=== PATIENT | male | born 1950 | race African-American/Black ===

== ENCOUNTER 2020-03-22 11:09 | Inpatient (IN) | payer OTHER ==
[2020-03-22] VITALS (11 sets, daily range): BP systolic 67–122; BP diastolic 37–59
[~2020-03-22] VITALS: Ht 170.2 cm; Wt 58.7 kg
--- NOTE | ~2020-03-22 | HC ---
[facility] [place] [address] CONSULTATION Name: DINO DE LA TORRE Room #: 212-P ADM IN M.R.#: [id number] Admission: 03/22/20 Attend Phys: Wu Ingram MD Discharge: Date of : 48 Report #: [id number] THIS REPORT FOR: cc: Eduard Smith MD, Ramilo MD Al-Absi,Salazar Haque MD ~ REASON FOR CONSULTATION: Acute kidney injury. REASON FOR PRESENTATION: Brought from his nursing facility because of melena, vomiting and possible hematemesis. HISTORY OF PRESENT ILLNESS: I am not able to obtain any meaningful history from the patient. He has acute mental status issues. He is a poor historian. He is known to have CVA with hemiparesis. We do not have any baseline on his chronic kidney disease issues. He has a history of dementia, diabetes mellitus, and hyperlipidemia. He was brought because of vomiting and possible hematemesis and was found to be on a profound acute kidney injury with a creatinine value of 10.7 and severe metabolic acidosis with the gap of around 40. The patient is not currently able to provide me with any details; however, I talked with his brother about his issues. He was admitted to the ICU for further management of his ongoing health issues. MEDICATIONS: I am unable to obtain any of his fdc medication; however, it is stated that the patient is diabetic and is taking metformin. PAST MEDICAL HISTORY: Listed in the medical chart: 1. CVA with hemiplegia and hemiparesis. 2. Dementia. 3. Diabetes mellitus. 4. Hyperlipidemia. 5. Hypertension. 6. Dysarthria. 7. Dysphagia. ALLERGIES: METOPROLOL AND NICARDIPINE. REVIEW OF SYSTEMS: I am not able to obtain given the patient's current mental status. FAMILY HISTORY: I am not able to obtain given the patient's current mental status. SOCIAL HISTORY: Unable to obtain, but he came from a nursing facility. PHYSICAL EXAMINATION: [facility] [address] [place] [address] CONSULTATION Name: DINO DE LA TORRE Room #: 212-P [facility] IN [facility].#: [id number] Admission: 03/22/20 Attend Phys: Wu Ingram MD Discharge: Date of : 48 Report #: [id number] VITAL SIGNS: Temperature 37.4, blood pressure is 120/85, pulse rate is 102. HEAD AND NECK: Extremely dry mucous membrane. CHEST: No crackles. CARDIOVASCULAR: No rub detected. ABDOMEN: Soft. EXTREMITIES: Lower extremities, no edema. LABORATORY VALUES: From admission revealed a white blood cell count of 13.4, pH of 7.185. Sodium of 144, potassium of 3.3, BUN of 71, creatinine of 8.0. CT revealed a potential thickening of the left lateral and anterior wall of the rectum. Renal ultrasound revealed no evidence of hydronephrosis. ASSESSMENT 1. Acute kidney injury. 2. Severe metabolic acidosis. 3. Diabetes mellitus. 4. Hypertension. 5. Dementia. PLAN: I had a lengthy discussion with the patient's brother yesterday. No dialysis is warranted by the family members. His metabolic acidosis is likely related to multifactorial issues including metformin. This has been improving. Continue with IV fluid for now. His creatinine is dropping down. Replace potassium. Continue to watch electrolytes, urine output. Continue to avoid nephrotoxins. Continue with the current IV fluid; however, we will adjust in the next few days to avoid electrolyte derangement. By: [id number] [id number] Salazar Caraballo MD /nt
--- NOTE | ~2020-03-22 | EMS ---
[facility] [address] [place] [address] EMS Patient Care Report Name: DINO DE LA TORRE Room #: REG BERTA Lawson#: [id number] Admission: 03/22/20 Attend Phys: Discharge: Date of : 48 Report #: [id number] THIS REPORT FOR: //name// Report Transmitted: 03/22/2020 12:46 EMS Care Summary [place], [place]/[facility] Incident [id number] @ 03/22/2020 10:45 Incident Location [address] Patient DINO JACINTO Male, 69 Years 1950 Patient Address [address] [place] [address] Patient History Stroke/CVA, Patient Medications Unknown, Chief Complaint VOMITING Disposition Transported No Lights/[place] Dispatch Reason Hemorrhage/Laceration Transported To [facility] Narrative RESPONDED TO HEMORRHAGE AT CUSTODIAL. UPON ARRIVAL PT FOUND SLEEPING IN BED. [facility] STAFF REPORT THEY ARE NEW TO FACILITY AND DO NOT KNOW HOW LONG THIS ISSUE HAS BEEN HAPPENING. PT IS ALERT AND ORIENTED, REPORTS ISSUE FOR 3 DAYS. PT HAS NO OTHER COMPLAINTS EXCEPT THE VOMITING. NH STAFF REPORTS THE VOMIT APPEARS TO HAVE TRACE AMOUNTS OF BLOOD AND APPEARS TO BE FECES. NH STAFF CANNOT GIVE INFO [facility] [address] [place] [address] EMS Patient Care Report Name: DINO DE LA TORRE Room #: TANYA Lawson#: [id number] Admission: 03/22/20 Attend Phys: Discharge: Date of : 48 Report #: [id number] ON IF PT HAS NORMAL STOOLS. PT IS TEAM LIFTED TO COT AND VITALS OBTAINED. EN ROUTE PT VOMITS X1. VOMIT APPEARS TO BE DARK BROWN, NO BLOOD NOTED. PT TRANSPORTED TO [facility] WITH NO CHANGE IN CONDITION. PT TEAM LIFTED TO BED AND HANDRAILS UP. REPORT GIVEN TO NURSE. Initial Vitals @11:02P: 109,R: 20,BP: 99/52,SpO2: 96, @10:57P: 59,R: 18,BP: 102/62,Pain: 0/10,GCS: 15,SpO2: 94,Revised Trauma: 12, Assessments @10:53MENTAL:Person Oriented,Time Oriented,Event Oriented,Place Oriented,SKIN:HEENT:Head/Face: No Abnormalities,Eyes: No Abnormalities,Neck/Airway: No Abnormalities,LUNG SOUNDS:General: Vomiting,ABDOMEN:General: Vomiting,PELVIS//GI:Incontinence,EXTREMITIES:Left Arm: Weakness,Left Leg: Weakness,Right Arm: Weakness,Right Leg: Weakness,PULSE:NEURO:No Abnormalities,@11:02MENTAL:No Abnormalities,SKIN:No Abnormalities,HEENT:Head/Face: No Abnormalities,Eyes: No Abnormalities,Neck/Airway: No Abnormalities,LUNG SOUNDS:General: Vomiting,Left Upper: No Abnormalities,Right Upper: No Abnormalities,Left Lower: No Abnormalities,Right Lower: No Abnormalities,ABDOMEN:General: Vomiting,Left Upper: No Abnormalities,Right Upper: No Abnormalities,Left Lower: No Abnormalities,Right Lower: No Abnormalities,PELVIS//GI:Incontinence,EXTREMITIES:Left Arm: Weakness,Right Arm: Weakness,Left Leg: Weakness,Right Leg: Weakness,PULSE:NEURO:No Abnormalities, Impression Vomiting Procedures @10:53ALS AssessmentResponse: UnchangedSucceeded Timeline 10:43,Call Received 10:43,Dispatch Notified 10:45,Dispatched 10:46,En Route 10:48,On Scene 10:53,At Patient 10:53,ALS Assessment,Response: UnchangedSucceeded, 10:57,BP: 102/62 M,PULSE: 59,RR: 18 R,SPO2: 94 Ox,ETCO2: ,BG: ,PAIN: 0,GCS: 15, 11:02,BP: 99/52 M,PULSE: 109,RR: 20 R,SPO2: 96 Ox,ETCO2: ,BG: ,PAIN: ,GCS: , 11:02,Depart Scene 11:04,At Destination 11:15,Call Closed [facility] [address] [place] [address] EMS Patient Care Report Name: DINO DE LA TORRE [id number] Admission: 03/22/20 Attend Phys: Discharge: Date of : 48 Report #: [id number] Disclaimer v1.1 Copyright 2020 [employer] This EMS Care Summary contains data elements from the applicable legal record (which may be displayed differently). It is designed to provide pertinent information for the following purposes: continuity of care, clinical quality, and state data reporting. The complete legal record is available to ED staff and administrators of the receiving hospital in [facility]'s Patient Tracker. All data is provided "as is."
--- NOTE | 2020-03-22 11:52 | NUR ---
LAB CALLED TO DRAW BLOOD UNABLE TO OBTAIN FROM IV SITE. LAB STATES THEY ARE UNABLE TO COME AT THIS TIME BUT WILL COME TO DRAW BLOOD.
--- NOTE | 2020-03-22 12:25 | EKG ---
[facility] [place] [address] ELECTROCARDIOGRAM REPORT Name: DINO JACINTO Room #: [facility]..#: [id number] Admission: Attend Phys: Discharge: Date of : 48 Report #: [id number] THIS REPORT FOR: cc: Yogesh Moreno MD [facility] ~ THIS REPORT FOR: //name// [facility] ED Test Date: 2020-03-22 Test Time: 11:47:01 Pat Name: DINO JACINTO Department: Room: Gender: Duct Cleaner: [facility] : 1950 Requested By: Chelsea Garcias Order Number: [id number] MD: Yogesh Moreno Measurements Intervals Trimble Rate: 103 P: 84 WI: 153 QRS: 80 QRSD: 97 T: QT: 346 QTc: 453 Interpretive Statements Sinus tachycardia Probable left atrial enlargement Borderline repolarization abnormality No previous ECG available for comparison Electronically Signed On 03-22-2020 12:24:51 TUMBLER DRIER OPERATOR by Yogesh Moreno [email or web address] <ELECTRONICALLY SIGNED> By: Yogesh Moreno MD, FAC 03/22/20 1224 1147 1147 Yogesh Moreno MD, FACC /EPI
--- NOTE | 2020-03-22 12:37 | NUR ---
LAB HAS NOT COME TO DRAW BLOOD. ATTEMPTED PERIPHERAL DRAW WITH NO SUCCESS. LAB CALLED AGAIN FOR REQUEST.
[2020-03-22 13:49] LABS: HEMATOCRIT 42.2 % (42.0-52.0); HEMOGLOBIN 12.5 gm/dL (14.0-18.0); MCH 23.2 pg (26.0-34.0); MCHC 29.5 g/dL (28.0-37.0); MCV 78.5 fL (80.0-100.0); PLATELET COUNT 254 thou/uL (150-400); RBC 5.38 mil/uL (4.50-6.00); RDW 15.2 % (10.5-14.5); WBC 13.4 thou/uL (4.0-11.0)
[2020-03-22 14:25] LABS: ABSOLUTE NEUTROPHILS 11.9 thou/uL (1.4-8.2)
[2020-03-22 14:29] LABS: ANION GAP 40 mmol/L (7-16); BUN 85 mg/dL (7-18); CALCIUM 9.2 mg/dL (8.5-10.1); CHLORIDE 99 mmol/L (98-107); CREATININE 10.7 mg/dL (0.7-1.3); GLUCOSE 113 mg/dL (74-106); LIPASE 222 U/L (73-393); MAGNESIUM 1.9 mg/dL (1.8-2.4); POTASSIUM 5.8 mmol/L (3.5-5.1); SGOT 8 U/L (15-37); SGPT 15 U/L (30-65); SODIUM 146 mmol/L (136-145); TOTAL BILIRUBIN 0.3 mg/dL (0.2-1.0); TOTAL PROTEIN 7.7 g/dL (6.4-8.2); TROPONIN-I <0.06 ng/mL (<0.06)
[2020-03-22 14:33] LABS: CO2 7 mmol/L (21-32)
[2020-03-22 15:36] LABS: URINE BILIRUBIN NEGATIVE (Negative); URINE BLOOD 2+ (Negative); URINE CLARITY CLEAR; URINE COLOR YELLOW; URINE GLUCOSE-RANDOM* NEGATIVE (Negative); URINE KETONES 1+ (Negative); URINE LEUKOCYTES-REFLEX TRACE (Negative); URINE NITRITE-REFLEX NEGATIVE (Negative); URINE PROTEIN (DIPSTICK) 3+ (Negative); URINE SPECIFIC GRAVITY >= 1.030 (1.005-1.035); URINE UROBILINOGEN 0.2 E.U./dl (0.2-1.0)
[2020-03-22 15:52] LABS: CASTS None Seen /LPF (None Seen); CRYSTALS None Seen /LPF (None Seen); SQUAMOUS 4-10 Moderate /LPF (0-3); URINE WBC-REFLEX 0-5 Rare /HPF (0-5)
[2020-03-22 15:53] LABS: BACTERIA-REFLEX 1-9 Few /HPF (None Seen)
--- NOTE | 2020-03-22 16:09 | NUR ---
VAT CONSULTED FOR A CL IN THE ER FOR THE ICU. TIP AT THE [facility], PLEASE SEE NI FOR DETAILS
[2020-03-22 19:51] LABS: CREATININE 10.8 mg/dL (0.7-1.3); POTASSIUM 5.9 mmol/L (3.5-5.1)
[2020-03-22 21:32] LABS: HEMATOCRIT 32.8 % (42.0-52.0)
[2020-03-22 21:34] LABS: HEMOGLOBIN 9.7 gm/dL (14.0-18.0)
[2020-03-23] VITALS (90 sets, daily range): BP systolic 73–170; BP diastolic 26–104
[2020-03-23 01:04] LABS: BE(vivo) -19.8 mmol/L (-2 to +3); HCO3 6.4 mmol/L (22.0-26.0); PO2 109.5 mmHg (80.0-100.0)
[2020-03-23 01:05] LABS: PCO2 17.4 mmHg (35.0-45.0); pH 7.185 (7.360-7.450)
[2020-03-23 04:24] LABS: ALBUMIN 2.9 g/dL (3.4-5.0); CALCIUM 7.4 mg/dL (8.5-10.1); CREATININE 10.4 mg/dL (0.7-1.3); MAGNESIUM 1.6 mg/dL (1.8-2.4); PHOSPHORUS 7.4 mg/dL (2.5-4.9)
[2020-03-23 04:30] LABS: POTASSIUM 4.5 mmol/L (3.5-5.1)
[2020-03-23 05:14] LABS: ABSOLUTE NEUTROPHILS 9.1 thou/uL (1.4-8.2); HEMATOCRIT 34.4 % (42.0-52.0); HEMOGLOBIN 10.1 gm/dL (14.0-18.0); LYMPHOCYTES 5.1 % (24.0-44.0); MCHC 29.2 g/dL (28.0-37.0); MCV 78.7 fL (80.0-100.0); MONOCYTES 10.8 % (1.0-8.0); PLATELET COUNT 216 thou/uL (150-400); POLYS 84.1 % (36.0-66.0); RBC 4.37 mil/uL (4.50-6.00); RDW 15.5 % (10.5-14.5); WBC 10.9 thou/uL (4.0-11.0)
--- NOTE | 2020-03-23 05:54 | NUR ---
PATIENT CAME UP TO THE FLOOR AT AROUND 2230. THE ER NURSE AND I CLEANED THE PATIENT UP AND GOT HIM INTO BED. PATIENT IS CONFUSED BUT CAN ANSWER SIMPLE QUESTIONS. PATIENT WAS HYPOTENSIVE AND I CONTACTED FRANDY HIGGINBOTHAM. I GAVE THE PATIENT A LITER OF NS. PATIENT'S BP CAME UP, BUT BECAME TACHYPNIC. CONTACTED FRANDY HIGGINBOTHAM AGAIN AND RECIEVED ORDERS FOR AN AMP OF BICARB AND AN ABG. BICARB GIVEN AND PATIENT'S RESPIRATIONS RETURNED TO NORMAL. ABG SHOWED CRIT LOW BICARB AND PH. PATIENT'S LACTATE CONTINUES TO CLIMB. ANOTHER LACTATE WAS DRAWN AT 0320. LAB HAS BEEN CONTACTED 3 DIFFERENT TIMES ASKING ABOUT THE PATIENT'S LACTATE LEVELS AT THIS TIME.
--- NOTE | 2020-03-23 09:47 | NUR ---
chart review. unable to visit with itz. noted in chart he from [facility]. cm called number listed for brother leny is wrong number. cm called freda and unable to speak with nurse.
[2020-03-23 10:43] LABS: URINE BLOOD 3+ (Negative); URINE COLOR YELLOW; URINE GLUCOSE-RANDOM* NEGATIVE (Negative); URINE KETONES 1+ (Negative); URINE LEUKOCYTES 2+ (Negative); URINE NITRITE NEGATIVE (Negative); URINE PROTEIN (DIPSTICK) 2+ (Negative); URINE SPECIFIC GRAVITY 1.025 (1.005-1.035); URINE UROBILINOGEN 0.2 E.U./dl (0.2-1.0)
[2020-03-23 10:46] LABS: ICTOTEST (BILI CONFIRMATORY) Negative (Negative); URINE BILIRUBIN NEGATIVE (Negative); URINE CLARITY CLOUDY
[2020-03-23 11:01] LABS: URINE CREATININE-RANDOM* 78.5 mg/dL; URINE PROTEIN-RANDOM* 195.2 mg/dL (<11.9)
[2020-03-23 11:07] LABS: SQUAMOUS 0-3 Few /LPF (0-3)
[2020-03-23 11:08] LABS: BACTERIA 1-9 Few /HPF (None Seen); CASTS None Seen /LPF (None Seen); CRYSTALS None Seen /LPF (None Seen); URINE WBC 0-5 Rare /HPF (0-5)
--- NOTE | 2020-03-23 18:31 | NUR ---
0815 PT RESTLESS PULLING AT SEO OBTAINED ORDERS FOR RESTRAINTS PER RENO. PT CODE STATUS CHANGED THIS AM. 1000 SPOKE W/DR BOJORQUEZ REGARDING PT PLAN OF CARE. LACTIC ACID DRAWS NO LONGER NEEDED Q3 PER KARU. 1030 PT MADE NPO FOLLOWING SWALLOW EVAL. TITRATED OFF LEVO AT 1330. AFEBRILE. NO BM. UOP 650. PROGRESSING IN PLAN OF CARE
[2020-03-24 00:30] VITALS: BP 120/85
[2020-03-24 06:00] LABS: POTASSIUM 3.3 mmol/L (3.5-5.1)
[2020-03-24 06:02] LABS: HEMATOCRIT 31.1 % (42.0-52.0); HEMOGLOBIN 9.7 gm/dL (14.0-18.0); MCH 23.2 pg (26.0-34.0); MCHC 31.3 g/dL (28.0-37.0); MCV 74.3 fL (80.0-100.0); RBC 4.19 mil/uL (4.50-6.00); RDW 14.2 % (10.5-14.5); WBC 6.1 thou/uL (4.0-11.0)
--- NOTE | 2020-03-24 06:10 | NUR ---
assumed pt care at around 2200, pt is a transfer from icu, pt is awake, alert and oriented to self and place, sr on the monitor, asessments as charted, vss, denied having concerns, no acute distress noted, will pass on report
[2020-03-24 08:31] VITALS: BP 124/61
[2020-03-24 11:24] VITALS: BP 148/59
--- NOTE | 2020-03-24 13:00 | 2DMMODE ---
[facility] [address] [place] [address] 2 D/M-MODE ECHOCARDIOGRAM Name: DINO DE LA TORRE Room #: 212-P ADM IN M.R.#: [id number] Admission: 03/22/20 Attend Phys: Wu Ingram MD Discharge: Date of : 48 Report #: [id number] THIS REPORT FOR: cc: Eduard Smith MD, Ramilo MD Santiago, Patrick MD [facility] ~ APPROVED REPORT Study performed: 03/24/2020 11:47:26 EXAM: Comprehensive 2D, Doppler, and color-flow Echocardiogram Patient Location: Bedside Room #: 212 Status: routine BSA: 1.68 HR: 95 bpm BP: 124/61 mmHg Rhythm: NSR Other Information Study Quality: Technically Difficult Technically limited study due to inability to position patient, uncooperative patient. Indications CVA/TIA Diabetes Echo Enhancing Agent Indication: Rule out Shunt Agent(s) / Amount(s) Used: Agitated Saline 7 cc 2D Dimensions IVC: 16.00 mm Aortic Valve AoV Peak Noe.: 1.49 m/s AO Peak Gr.: 8.85 mmHg LVOT Max P.69 mmHg LVOT Max V: 1.29 m/s Mitral Valve E/A Ratio: 0.9 MV Decel. Time: 203.32 ms MV E Max Noe.: 0.64 m/s [facility] [address] [place] [address] 2 D/M-MODE ECHOCARDIOGRAM Name: DINO DE LA TORRE Room #: 212-P ADM IN M.R.#: [id number] Admission: 03/22/20 Attend Phys: Wu Ingram MD Discharge: Date of : 48 Report #: [id number] MV A Noe.: 0.75 m/s MV PHT: 58.96 ms IVRT: 106.11 ms Pulmonary Valve PV Peak Noe.: 1.01 m/s PV Peak Gr.: 4.10 mmHg Pulmonary Vein P Vein S: 0.30 m/s P Vein A: 0.28 m/s P Vein D: 0.20 m/s P Vein A Dur.: 92.3 msec P Vein S/D Ratio: 1.50 Tricuspid Valve TR Peak Noe.: 3.34 m/s TR Peak Gr.: 44.53 mmHg PA Pressure: 50.00 mmHg Left Ventricle The left ventricle is normal size. There is normal LV segmental wall motion. There is normal left ventricular wall thickness. Left ventricular systolic function is normal. The left ventricular ejection fraction is within the normal range. LVEF is 60-65%. Grade I - abnormal relaxation pattern. Right Ventricle The right ventricle is normal size. The right ventricular systolic function is normal. Atria The left atrium size is normal. Interatrial septum is intact without evidence of ASD or PFO. The right atrium size is normal. Aortic Valve The aortic valve is normal in structure. No aortic regurgitation is present. There is no aortic valvular stenosis. Mitral Valve The mitral valve is normal in structure. There is no mitral valve regurgitation noted. No evidence of mitral valve stenosis. Tricuspid Valve The tricuspid valve is normal in structure. There is mild tricuspid regurgitation. Estimated PAP 50 mmHg. There is moderate pulmonary hypertension. Pulmonic Valve [facility] [address] [place] [address] 2 D/M-MODE ECHOCARDIOGRAM Name: DINO DE LA TORRE Room #: 212-P [facility] IN ..#: [id number] Admission: 03/22/20 Attend Phys: Wu Ingram MD Discharge: Date of : 48 Report #: [id number] The pulmonary valve is normal in structure. There is no pulmonic valvular regurgitation. Great Vessels The aortic root is normal in size. IVC is normal in size and collapses >50% with inspiration. Pericardium There is no pericardial effusion. <Conclusion> Normal left ventricle size and wall thickness Ejection fraction 60% Normal right ventricular size and function Normal aortic/mitral valve structure and function Mild tricuspid valve insufficiency Pulmonary artery systolic pressure estimated at 50 mmHg No pericardial effusion <ELECTRONICALLY SIGNED> By: Yogesh Moreno MD, [facility] 03/24/20 1300 1300 [facility] Yogesh Moreno MD, FACC /INF
[2020-03-24 15:06] VITALS: BP 124/64
--- NOTE | 2020-03-24 16:52 | NUR ---
FAXED CLINICAL UPDATE TO KEVIN/[facility]OR[facility] RECEIVED CONFIRMATION AND WILL F/U WITH CHUCK IN ADM ON SUNDAY.
--- NOTE | 2020-03-24 16:54 | NUR ---
Patient admits from [facility] where he resides in [place]. Sp with sibling Lei Lantigua. Discussed can visit with one designated visitor and reviewed hours. Mr Lantigua unsure which sigling will be designated visitor. Sp with admissions at [facility]. DC convention planner to update facility. Plan return to [facility] once stable.
[2020-03-24 19:24] VITALS: BP 136/77
[2020-03-25 03:37] VITALS: BP 147/58
--- NOTE | 2020-03-25 03:45 | NUR ---
PATIENT ON BILATERAL MITTENS.REPOSITIONED Q2 HOURS AND NEEDED.MONITOR SHOWS SR.NPO.DENIES NEEDS AT THIS TIME.POC CONTINUED.
[2020-03-25 06:11] LABS: ALBUMIN 2.6 g/dL (3.4-5.0); CALCIUM 8.3 mg/dL (8.5-10.1); PHOSPHORUS 2.3 mg/dL (2.5-4.9)
[2020-03-25 06:31] LABS: POTASSIUM 2.8 mmol/L (3.5-5.1)
[2020-03-25 07:25] VITALS: BP 98/58
[2020-03-25 11:05] VITALS: BP 111/58
[2020-03-25 15:30] VITALS: BP 118/53
--- NOTE | 2020-03-25 17:25 | NUR ---
08:00 PT IS RESPONDING MORE APPROPRIATLEY THIS AM. WILL TRY A RESTRAINT RELEASE AND SEE HOW HE DOES WITH SUCH BEFORE OBTIANING ANOTHER NEW ORDER FOR SUCH. TURNED TO RIGHT SIDE COCCYX IS SLIGHTLY RED THEREFORE RELIEVED MUCH PRESSURE FROM AREA POSSIBLE. PARTIAL BED BATH PERFORMED, HAIR WASHED AND LIPS SCRUBBED WELL FOR DRY SKIN REMOVAL. OINTMENT TO LIPS FOR SUCH. NSR NO ECTOPY, DENIES ANY SOB BUT REQUESTING WATER, EXPLAINED TO HIM HE COULD NOT DRINK WATER YET HE IS NOT SWALLOWING SAFELY.
--- NOTE | 2020-03-25 17:28 | NUR ---
12:00 REPOITIONED PT. IV IS INFUSING TO RIGHT SUBCLAVIAN, BLOOD RETURN FROM ALL THREE PORTS AND FLUSHED HEAVILY. NSR NO ECTOPY, NO SIGN'S OF SOB. SEO CLEAR YELLOW URINE, NO SEDIMENT. RENAL WILL BE MANAGING HIS ELECTROLYTE REPLACEMTS MOVING FORWARD TODAY.
[2020-03-25 17:39] LABS: ALBUMIN 2.4 g/dL (3.4-5.0); PHOSPHORUS 2.5 mg/dL (2.5-4.9)
[2020-03-25 17:42] LABS: CREATININE 3.8 mg/dL (0.7-1.3); POTASSIUM 2.6 mmol/L (3.5-5.1)
[2020-03-25 19:30] VITALS: BP 117/61
[2020-03-26 04:30] VITALS: BP 120/68
--- NOTE | 2020-03-26 05:19 | NUR ---
ASSUMED PT CARE AT THE CHANGE OF SHIFT, PT IS AWAKE, ALERT AND ORIENTED, PLEASAMNT AND COOPERATIVE WITH CARE, PT IS OFF RESTRAINS, SR ON THE MONITOR, ASSESSMENTS CHARTED, 2 BAGS OF POTASSIUM INFUSED, PT WANTS TO EAT, BUT NPO, MIGHT NEED SPEECH EVAL, HAD A LARGE LOOSE STOOL, NO ACUTE DISTRESS NOTED, PLAN IS TO MONITOR POTASSIUM, PROGRESSING WELL TOWARDS POC
[2020-03-26 05:47] LABS: ALBUMIN 2.4 g/dL (3.4-5.0); MAGNESIUM 1.2 mg/dL (1.8-2.4); PHOSPHORUS 2.3 mg/dL (2.5-4.9)
[2020-03-26 06:06] LABS: CREATININE 2.8 mg/dL (0.7-1.3)
[2020-03-26 06:07] LABS: POTASSIUM 2.8 mmol/L (3.5-5.1)
[2020-03-26 07:52] VITALS: BP 143/56
--- NOTE | 2020-03-26 11:03 | NUR ---
Pari liason updated. No weekend dc anticipated. The pt has been placed on a modified diet with supervision. Plans for video swallow Sunday then likely return to the [facility]. Case discussed with the care team.
[2020-03-26 11:30] VITALS: BP 89/54
--- NOTE | 2020-03-26 12:47 | NUR ---
FAXED CLINICAL UPDATE TO [facility]OR[facility] SPOKE WITH CHUCK IN ADM SHE RECEIVED UPDATE.
[2020-03-26 15:50] VITALS: BP 153/64
--- NOTE | 2020-03-26 17:47 | NUR ---
ASSUMED CARE PT SHIFT CHANGE. ASSESSMETNS CHARTED.MEDS GIVEN PER JUN. PT ALERT AND ORIENTRED X1-2. FORGETFUL AND CONFUSED AT TIMES. PT SEEN BY SPEECH WITH DIET ORDER. TOLERATING FAIR. PT APPETITE LESS THAN ADEQUATE. SPEECH TO HAVE VIDEO SWALLOW ON SUNDAY. PT TURNED TOLERATED. POTASSIUM ANDMAG REPLACED PER ORDERS. PT CURRENLTY RESTING IN BED IN NAP.WILL CONT TO MONITOR AND FOLLOW POC. WILL PASS ON REPORT TO ZAID RN.
[2020-03-26 20:30] VITALS: BP 104/48
[2020-03-27 04:45] VITALS: BP 121/58
--- NOTE | 2020-03-27 05:46 | NUR ---
PATIENT SLEPT MOST OF THE NIGHT. PATIENT IS A&01-2, CONFUSED AT TIMES. FALL PRECAUTIONS ARE IN PLACE. SR ON THE MONITOR. VSS. NO COMPLAINTS OF PAIN. NO SIGNS OF SOA. CONTINUING TO ASSESS ACCORDING TO POC.
[2020-03-27 07:34] LABS: HEMATOCRIT 31.3 % (42.0-52.0); HEMOGLOBIN 9.4 gm/dL (14.0-18.0); MCH 22.8 pg (26.0-34.0); MCHC 30.1 g/dL (28.0-37.0); MCV 75.9 fL (80.0-100.0); RBC 4.12 mil/uL (4.50-6.00); RDW 13.9 % (10.5-14.5); WBC 5.4 thou/uL (4.0-11.0)
[2020-03-27 07:45] LABS: CALCIUM 7.9 mg/dL (8.5-10.1)
[2020-03-27 07:47] LABS: CREATININE 1.8 mg/dL (0.7-1.3); POTASSIUM 2.9 mmol/L (3.5-5.1)
[2020-03-27 08:00] VITALS: BP 121/63
[2020-03-27 11:00] VITALS: BP 111/55
[2020-03-27 14:00] VITALS: BP 114/79; BP 131/62
--- NOTE | 2020-03-27 16:21 | NUR ---
Assumed care of pt. after transfer at 1340. Pt. is calm and cooperative. Vitals stable, fall precautions in place.
--- NOTE | 2020-03-27 19:54 | NUR ---
1930 notified CORIE DIAZ OF POTASSIUM ORDERS FOR CLARIFICATION, WILL DRAW LABS ORDERED THEN CALL NEPHROLOGY PRIOR TO GIVING ANY MORE POTASSIUM, FOR ORDER CLARIFICATION.
[2020-03-27 20:10] VITALS: BP 122/63
--- NOTE | 2020-03-27 21:23 | NUR ---
ORDER CLARIFICATION CALL BACK FROM DR DAILEY, HOLD POTASSIUM IV ORDER FOR NOW. WILL REEVALUATE IN AM, READ BACK, PHARMACY NOTIFIED LYNN CHERRY RN
--- NOTE | 2020-03-27 22:42 | NUR ---
1900 ASSUMED CARE OF PT, 1930 BASELINE ASSESSMENT COMPLETED, PT RESTING IN BED AND ANSWERS SOME QUESTIONS WITH YES OR NO DENIES PAIN OR DISCOMFORT, POSITION CHANGED, SCD'S AND FALL PRECAUTIONS IN PLACE
--- NOTE | 2020-03-28 02:46 | NUR ---
pt has continued to be more alert and oriented during shift and is now speaking in full sentences requesting something sweet and holding own sugar free pudding while waiting in between bites, oriented to person place and situation, disoriented to year.
[2020-03-28 04:15] VITALS: BP 119/67
[2020-03-28 05:53] LABS: ALBUMIN 2.4 g/dL (3.4-5.0); CALCIUM 8.2 mg/dL (8.5-10.1); CREATININE 1.4 mg/dL (0.7-1.3); MAGNESIUM 1.9 mg/dL (1.8-2.4); PHOSPHORUS 1.7 mg/dL (2.5-4.9); POTASSIUM 3.4 mmol/L (3.5-5.1)
[2020-03-28 07:30] VITALS: BP 130/69
--- NOTE | 2020-03-28 15:04 | NUR ---
ASSUMED PT CARE THIS AM. PT VSS, A&OX2. PT HAS NO COMPLAINTS OF PAIN. IV PATENT, FLUIDS INFUSING. MEDS GIVEN PER EMAR WITHOUT COMPLAINT. PT BEING FED BY STAFF FOLLOWING INSTRUCTIONS FROM SPEECH. HYDRATION ENCOURAGED WITH THICKENED LIQUIDS. SEO IN PLACE, PATENT. PT REFUSED BREAKFAST THIS AM. ENCOURAGED TO EAT AT MEAL TIME. PT HAD A BM IN BED, COMPLETE BED CHANGE.
[2020-03-28 16:24] VITALS: BP 11/77; BP 111/77
[2020-03-28 19:35] VITALS: BP 134/80
[2020-03-29 04:58] VITALS: BP 175/74
[2020-03-29 05:32] LABS: ALBUMIN 2.5 g/dL (3.4-5.0); CALCIUM 8.8 mg/dL (8.5-10.1); CREATININE 1.4 mg/dL (0.7-1.3); MAGNESIUM 1.4 mg/dL (1.8-2.4); PHOSPHORUS 1.9 mg/dL (2.5-4.9); POTASSIUM 3.5 mmol/L (3.5-5.1)
--- NOTE | 2020-03-29 05:33 | NUR ---
PT AOX2-3, TO PERSON, PLACE, AND INTERMITTENTLY TO SITUATION. PT NOTED TO BE PLEASANTLY CONFUSED AND FORGETFUL, ABLE TO MAKE NEEDS KNOWN. PT DENIES PAIN AND SOB WHILE ON ROOM AIR. PT WITHOUT PO INTAKE OF HONEY THICKENED FLUIDS AND PUREED DIET THIS SHIFT. PT INCONTINENT OF BOWEL, DIARRHEA X1. SEO PATENT. PT RESTING IN BED THROUGHOUT SHIFT, FREQUENT REPOSITIONING ENCOURAGED, PT REFUSING REPOSITIONING ASSISTANCE DUE TO REPORTS OF COMFORT WHILE ON LEFT SIDE. REDNESS NOTED TO BOTTOM, ZGUARD APPLIED. ONCALL SCAFFOLD SETTER NOTIFIED, RECEIVED ORDERS FOR LOW AIR LOSS MATTRESS. PT ENCOURAGED TO NOTIFY STAFF FOR ALL NEEDS, CALL LIGHT WITHIN REACH, BED ALARM ON, BED IN LOWEST POSITION, FREQUENT MONITORING WILL CONTINUE.
[2020-03-29 08:16] VITALS: BP 138/80
--- NOTE | 2020-03-29 12:26 | NUR ---
assumed care at 0700. pt is a&0 x2. pt is currently declining and denies all medication when offer in the morning. pt is doing well with pt as he can side and step. pillow is betweeen legs and abd is soft and flat. barth is in place. call light within reach. right jugular midline is intact and shows no signs of redness or swelling. pt denies pain or nausea or vomitting. will continue to monitor. fall precaution.
--- NOTE | 2020-03-29 14:52 | NUR ---
ON-GOING ASSESSMENT: CM REVIEWED CHART. CM FAXED UPDATED CLINICAL TO SOREN/KEVIN. PT MAY NEED EGD/FLEX SIG. GI FOLLOWING AND WILL DISCUSS. CM NOTIFIED BEDSIDE RN PT WILL NEED NEGATIVE COVID TEST PRIOR TO D/C BACK TO FACILITY. CM WILL CONTINUE TO FOLLOW TO ASSIST NEEDED.
[2020-03-29 17:00] VITALS: BP 139/75
[2020-03-29 19:38] VITALS: BP 143/75
--- NOTE | 2020-03-30 03:44 | NUR ---
ASSUMED PT CARE AT SHIFT CHANGE. PT REFUSED POLYETHYLENE GLYCOL. PT BLOOD SUGAR WAS 148 NO INSULIN INDICATED. PT DID TELL ME THAT HE DOES NOT WANT ANYTHING AT ALL MEDICATION [place] BECAUSE HE DIDN'T KNOW WHAT IT WOULD DO FOR HIM. PT WAS AGGITATED AT THE BEGINGING OF THE SHIFT BUT BECAME A LOT MORE PLEASANT THE SHIFT PROGRESSED. PT DOES NOT LIKE THE NECTAR THICK FLUIDS BUT I DID ENCOURAGE HIM TO DRINK PLENTY TO STAY HYDRATED. PT DENIES PAIN, N/V. PT HAS A MIDLINE IN HIS RIGHT JUGULAR. PT DID NOT GET OUT OF BED THIS SHIFT. NO SKIN ISSUES. OLD SCARS ON BOTTOM AND LEGS. FREQUENT ROUNDS PERFORMED ON PT. WILL CONTINUE TO MONITOR.
[2020-03-30 04:06] VITALS: BP 145/64
[2020-03-30 07:45] VITALS: BP 146/73
--- NOTE | 2020-03-30 10:14 | NUR ---
ASSUMED CARE AT 0700. PT IS A&0 X2. PT IS ALERT TO SELF AND LOCATION. HE DENIES ALL OF HIS MEDICATION. HE HAS A POOR DIET. VSS. PT NEEDS TOTAL CARE. PT DENIES BREAKFAST. PT WILL BE NPO AT MIDNIGHT DUE TO GI PROCEDURE. PT HAS RIGHT JUGULAR AND IT SHOWS NO SIGNS OF REDNESS OF SWELLING. PT HAS NO EDEMA. PT DENIES ANY PAIN, SOA, N/V. PT HAS SEO IN PLACE. PT IS INCONTINENT WITH BM. PT IS ACHS BUT NOT GIVEN INSULIN DUE TO BLOOD GLUCOSE LEVEL.FALL PRECAUTION. CALL LIGHT WITHIN REACH.
[2020-03-30 16:30] VITALS: BP 119/61
[2020-03-30 21:13] VITALS: BP 103/53
--- NOTE | 2020-03-30 22:34 | NUR ---
ASSUMED PT CARE AT SHIFT [facility]. PT HAS A SEO IN PLACE. PT HAS TRIPLE LUMEN RIGHT JUGULAR MIDLINE IN PLACE WITH FLUIDS RUNNING. PT OXYGEN IS AT A 91% I TRIED TO ENCOURAGE PT TO WEAR 2L OXYGEN BUT HE REFUSED. GAVE REPORT TO REJI (ANTONIO) BEFORE GOING TO THE ER.
--- NOTE | 2020-03-31 03:00 | NUR ---
CONTINUED CARE FROM OUTGOING RN. PT RESTING IN BED. NPO AT MIDNIGHT FOR EGD TOMORROW. IV INTACT AND FLUIDS INFUSING. FOLLEY IN PLACE. FALL PREC MAINTAINED AND WILL CONT WITH POC TILL EOS
[2020-03-31 06:24] LABS: HEMATOCRIT 25.8 % (42.0-52.0); MCH 23.4 pg (26.0-34.0); MCHC 30.9 g/dL (28.0-37.0); MCV 75.7 fL (80.0-100.0); RBC 3.41 mil/uL (4.50-6.00); RDW 13.7 % (10.5-14.5)
[2020-03-31 06:48] VITALS: BP 158/69
[2020-03-31 06:56] LABS: ALBUMIN 2.6 g/dL (3.4-5.0); CALCIUM 8.7 mg/dL (8.5-10.1); CREATININE 1.1 mg/dL (0.7-1.3); POTASSIUM 3.3 mmol/L (3.5-5.1); TOTAL BILIRUBIN 0.2 mg/dL (0.2-1.0); TOTAL PROTEIN 6.1 g/dL (6.4-8.2)
[2020-03-31 07:46] VITALS: BP 151/67
[2020-03-31 10:46] LABS: % SATURATION 27 % (20-39); IRON 39 ug/dL (65-175); TIBC 146 ug/dL (250-450)
[2020-03-31 11:09] LABS: OBSERVED RETIC COUNT 0.38 % (0.6-2.6)
[2020-03-31] MEDS ORDERED: CHLORTHALIDONE25 MG PO (13:45)
[2020-03-31] MEDS ORDERED: ATORVASTATIN CA10 MG PO (13:45)
[2020-03-31] MEDS ORDERED: METFORMIN HCL1000 MG PO (13:46)
[2020-03-31] MEDS ORDERED: DILTIAZEM 24HR120 M1 PO (13:46)
[2020-03-31] MEDS ORDERED: LOSARTAN POTAS100 MG PO (13:46)
[2020-03-31] MEDS ORDERED: SERTRALINE HCL50 MG PO (13:47)
[2020-03-31] MEDS ORDERED: PIOGLITAZONE15 MG (13:47)
[2020-03-31] MEDS ORDERED: HYDRALAZINE 2525 M1 PO (13:47)
--- NOTE | 2020-03-31 16:04 | NUR ---
ON-GOING ASSESSMENT: CM REVIEWED CHART AND SPOKE WITH ATTENDING. PT GETTING FLEX SIG TODAY. PT IS STILL OUT OF THE ROOM AT 1600 FOR PROCEDURE. CM SENT UPDATED CLINICAL TO KEVIN/SOREN AND UPDATED JENNIFER IN ADMISSIONS. CM WILL CONTINUE TO FOLLOW TO ASSIST NEEDED.
[2020-03-31 19:18] VITALS: BP 142/59
--- NOTE | 2020-03-31 20:25 | NUR ---
Assumed care of pt. at 0700. Pt. was calm and cooperative. Pt. was taken down for EGD around 1400. Pt. returned from EGD and was pleasant and did not report pain. Fall precautions in place.
--- NOTE | 2020-04-01 04:06 | NUR ---
PT CALLED FOR HELP.WHEN I GOT TO HIS ROOM, I NOTED THE CENTRAL LINE ON HIS BED SIDE TABLE. NO ACTIVE BLEEDING NOTED TO NECK SITE. SOME SMALL AMOUNT OF BLOOD NOTED ON GOWN. PT HAD NO CLUE WHAT I WAS TALKING ABOUT WHEN I ASKED WHY HE PULLED THE LINE OUT.THE LINE WAS TRIMMED AT 25CM . PT DENIES PAIN. HE IS CONVERSATIONAL. NO SOA NOTED.
[2020-04-01 04:29] VITALS: BP 133/71
[2020-04-01 07:52] VITALS: BP 129/55
[2020-04-01 08:41] LABS: HEMATOCRIT 27.4 % (42.0-52.0); HEMOGLOBIN 8.4 gm/dL (14.0-18.0); MCH 23.2 pg (26.0-34.0); MCHC 30.6 g/dL (28.0-37.0); RBC 3.61 mil/uL (4.50-6.00); WBC 4.4 thou/uL (4.0-11.0)
[2020-04-01 09:14] LABS: CALCIUM 8.9 mg/dL (8.5-10.1); CREATININE 1.2 mg/dL (0.7-1.3); MAGNESIUM 1.4 mg/dL (1.8-2.4); POTASSIUM 3.5 mmol/L (3.5-5.1)
--- NOTE | 2020-04-01 11:34 | NUR ---
ASSUMED CARE AT 0700. PT IS A&O X2. PT HAS A SEO IN PLACE AND URINE IS LIGHT YELLOW. PT DENIES ANY PAIN, N,V,D, SOA. PT BREATHING IS ADEQUATE IN THE 90'S WITH RA. PT IS ABLE TO ROTATE AND TURN Q2. PT IS TOLERATING NECTAR THICK DIET VERY WELL. PT IS STILL INCONTINENT WITH BOWEL MOVEMENT. WILL BE CHECK FREQUENTLY. WOUND ON COCCYX AND Z GUARD WAS APPLIED ON COCCYX. THERE IS NO IV THE PT REMOVED IV LAST NIGHT. DOCTOR RADHA HAS OKAY PT WITH NO HAVING IV. PT IS ACCU CHECK BUT THIS AM: PT BG IS WNL.FALL PRECAUTION. CALL LIGHT WITHIN REACH. WILL CONTINUE TO MONITOR FOR BREATHING AND PAIN PRN..
[2020-04-01] MEDS ORDERED: PROTONIX40 M2 PO (12:00)
--- NOTE | 2020-04-01 12:51 | NUR ---
on-going assessment: CM REVIEWED CHART AND SPOKE WITH PTS BROTHER. PT IS STABLE TO DISCHARGE TODAY TO [facility]. CM FAXED D/C ORDERS TO FACILITY. CHART COPY WAS ORDERED AND [employer] NOTIFIED. BROTHER IS AGREEABLE WITH DISCHARGE PLAN. TRANSPORTATION HAS BEEN ARRANGED FOR 1400. CM NOTIFIED BEDSIDE RN WHO HAS THE NUMBER FOR REPORT. PT REPORTS NO FURTHER NEEDS FROM CM .
--- NOTE | 2020-04-02 11:56 | P ---
[facility] [address] [place] [address] PROCEDURE REPORT Name: DINO DE LA TORRE Room #: 448-P [facility] IN M.R.#: [id number] Admission: 03/22/20 Attend Phys: Wu Ingram MD Discharge: 04/01/20 Date of : 48 Report #: [id number] THIS REPORT FOR: cc: Eduard Smith MD, Ramilo MD McElhinney, Christian C. MD ~ CC: Salazar Smith DATE OF SERVICE: 03/31/2020 PROCEDURE PERFORMED: Flexible sigmoidoscopy. HISTORY OF PRESENT ILLNESS: The patient is a 69-year-old male who was admitted with nausea, vomiting, decreased bowel movements. He has a history of dementia. Overall, is a poor historian, possible coffee-ground emesis. The upper endoscopy was just performed showing gastritis with esophagitis. No evidence of active bleeding; however, the patient has been on PPI therapy since admission. He underwent a CT scan of the abdomen and pelvis, which shows asymmetric thickening in the left lateral and anterior wall of the rectum, moderate amount of stool was noted. Prostate enlargement and bladder wall thickening also noted. It is unclear when and if the patient has had a previous colonoscopy because of his dementia, it was felt like he would not be able to tolerate a prep, the plan is for flexible sigmoidoscopy. DESCRIPTION OF PROCEDURE: The risks and benefits of the procedure were explained to the patient's durable power of assistant district attorney, those risks including but not limited to bleeding, perforation and the risk of sedation. He understood these risks and gave informed consent. Sedation was given using propofol per anesthesia. Next, a digital rectal exam was initially performed which was normal. I did not feel any mass lesions. Next, the prostate feel enlarged, but no obvious mass or nodule was noted. Next, using a standard Olympus colonoscope, the scope was placed in the patient's anus and advanced under direct vision into the sigmoid colon. The overall prep was very poor. Despite multiple washings and aspirations, I was not able to visualize the rectal mucosa. There were areas in the rectosigmoid and sigmoid colon that were able to be visualized, which were normal. No obvious colitis, polyps or masses were seen, but again visualization was significantly limited. Most of the rectum could not be evaluated. Again, the patient did not have a mass on digital rectal exam or thickening felt on exam. The scope was then withdrawn and the procedure terminated. The patient tolerated the procedure well. IMPRESSION: 1. Poor prep as described above. [address] [address] PROCEDURE REPORT Name: DINO DE LA TORRE Room #: 448-P [facility] IN M.R.#: [id number] Admission: 03/22/20 Attend Phys: Wu Ingram MD Discharge: 04/01/20 Date of : 48 Report #: [id number] 2. No obvious mass palpated on digital rectal exam today. No obvious mass seen, but visualization was significantly limited. RECOMMENDATIONS: Observe the patient post-procedure. Thank you for allowing me to participate in his care. <ELECTRONICALLY SIGNED> By: Jim Brady MD 04/02/20 1156 1610 0030 Jim Brady MD /nt
--- NOTE | 2020-04-02 11:56 | P ---
[facility] [place] [address] PROCEDURE REPORT Name: DINO DE LA TORRE Room #: 448-P [facility] IN M.R.#: [id number] Admission: 03/22/20 Attend Phys: Wu Ingram MD Discharge: 04/01/20 Date of : 48 Report #: [id number] THIS REPORT FOR: cc: Eduard Smith MD, Ramilo MD McElhinney, Christian C. MD ~ CC: Salazar Smith DATE OF SERVICE: 03/31/2020 PROCEDURE PERFORMED: Upper endoscopy with biopsies. HISTORY OF PRESENT ILLNESS: The patient is a 69-year-old male with possible history of coffee-ground emesis. He has been on PPI therapy since admission. Hemoglobin has remained stable. A CT scan of the abdomen and pelvis was also performed on 03/22/2020, which showed asymmetric thickening of the left lateral and anterior wall of the rectum, may represent an infiltrating neoplasm or mass. Moderate amount of stool was present in the rectum. Plan is for an EGD and flexible sigmoidoscopy today. DESCRIPTION OF PROCEDURE: The risks and benefits of the procedure were explained to the patient's DPOA, those risks including but not limited to bleeding, perforation and the risk of sedation. He understood these risks and gave informed consent. Sedation was given using propofol per anesthesia. Next, using a standard Olympus upper endoscope, the scope was placed in the patient's mouth and advanced under direct vision through the esophagus, stomach and into the second portion of the duodenum. The upper and mid esophagus was normal in appearance. In the distal esophagus, grade B erosive esophagitis was noted. No evidence of active bleeding. Upon entering the stomach, a small hiatal hernia was noted. There was a diffuse gastritis noted in the body and antrum of the stomach with several linear erosions. No evidence of bleeding. Biopsies were obtained to rule out H. pylori today. The pylorus was normal and patent. The duodenal bulb, first and second portion were all normal. Scope was then withdrawn and the procedure terminated. The patient tolerated the procedure well. IMPRESSION: 1. Grade B erosive esophagitis. 2. Gastritis with gastric erosions. 3. Small hiatal hernia. 4. Otherwise, normal upper endoscopy. RECOMMENDATIONS: [address] [address] PROCEDURE REPORT Name: DINO DE LA TORRE Room #: 448-P [facility] IN .R.#: [id number] Admission: 03/22/20 Attend Phys: Wu Ingram MD Discharge: 04/01/20 Date of : 48 Report #: [id number] 1. Await biopsy results. 2. Continue PPI therapy. 3. We will proceed with flexible sigmoidoscopy next today. Thank you for allowing me to participate in his care. <ELECTRONICALLY SIGNED> By: Jim Brady MD 04/02/20 1156 1607 0023 Jim Brady, /savage
--- NOTE | 2020-04-05 09:06 | PATH ---
[facility] [address] [place] [address] PATHOLOGY RPT PROCEDURE Name: WILDINO Room #: 448-P [facility] IN M.R.#: [id number] Admission: 03/22/20 Date of : 48 Discharge: 04/01/20 Report #: [id number] Path Case #: [id number] [facility] Accession Number: [id number] . 01 Material submitted: . stomach - BIOPSY OF GASTRITIS R/O H. PYLORI . 01 Clinician provided ICD-10: K92.0 N17.0 . 01 Clinical history: . COFFEE GROUND EMESIS; GASTRITIS, ABNORMAL CT, ESOPHAGITIS . 02 Diagnosis: Gastric mucosa, gastritis, rule out H. pylori, endoscopic biopsy: - Mild reactive gastropathy. - Negative for intestinal metaplasia or atrophy. - Negative for Helicobacter pylori (properly controlled immunohistochemical stain performed). (IUV:pit 04/02/2020) QTP 04/02/2020 1525 Local . 02 Electronically signed: . Cassandra Coffey MD, Pathologist NPI- [id number] . 01 Gross description: . The specimen is received in formalin, labeled "Dino Lantigua BX of gastritis" and consists of 4 fragments of pink-thayer tissue measuring between 0.3 x 0.2 cm and 0.5 x 0.3 cm which are entirely submitted in A1. (SDY; 04/01/2020) SYU/SYU 04/01/2020 1612 Local . 02 Pathologist provided ICD-10: K31.9 . 02 CPT . 938645, [id number] Specimen Comment: A courtesy copy of this report has been sent to [phone], [phone] Specimen Comment: [phone], Specimen Comment: Report sent to ,DR PACHECO / DR ARCHIBALD Performed at: [address], [place] [id number] MD Jonatan Lincoln MD Phone: [phone] [place] [address] PATHOLOGY RPT PROCEDURE Name: DINO LANTIGUA Room #: 448-P [facility] IN M.R.#: [id number] Admission: 03/22/20 Date of : 48 Discharge: 04/01/20 Report #: [id number] Path Case #: [id number] Performed at: [address] [id number] MD Cassandra Coffey MD Phone: [phone]
== END 2020-04-01 14:03 | DRG 871 ==
LOC: ER 11:09 → 2N 15:53 → EROBS 15:53 → 4S 15:53 → ICU 21:48 → 2N 03-23 22:13 → 4S 03-27 13:30
PROVIDERS: Hospitalist; Internal Medicine; Internal Medicine Nephrology; Nurse Practitioner; Nurse Practitioner Family; Physician Assistant; ADMIT Hospitalist; ATTEND Hospitalist
DX: A41.9 Sepsis, unspecified organism (principal); N17.0 Acute kidney failure with tubular necrosis; G93.41 Metabolic encephalopathy; R65.21 Severe sepsis with septic shock; K22.11 Ulcer of esophagus with bleeding; K25.4 Chronic or unspecified gastric ulcer with hemorrhage; E43 Unspecified severe protein-calorie malnutrition; K92.0 Hematemesis; I69.359 Hemiplegia and hemiparesis following cerebral infarction affecting unspecified side; N18.30 Chronic kidney disease, stage 3 unspecified; F03.90 Unspecified dementia, unspecified severity, without behavioral disturbance, psychotic disturbance, mood disturbance, and anxiety; K59.00 Constipation, unspecified; E78.5 Hyperlipidemia, unspecified; E86.0 Dehydration; I95.9 Hypotension, unspecified; I12.9 Hypertensive chronic kidney disease with stage 1 through stage 4 chronic kidney disease, or unspecified chronic kidney disease; K44.9 Diaphragmatic hernia without obstruction or gangrene; E11.22 Type 2 diabetes mellitus with diabetic chronic kidney disease; Z66 Do not resuscitate; R41.0 Disorientation, unspecified; R13.10 Dysphagia, unspecified; Z20.828 Contact with and (suspected) exposure to other viral communicable diseases; E87.6 Hypokalemia; E83.42 Hypomagnesemia; F32.9 Major depressive disorder, single episode, unspecified; D50.9 Iron deficiency anemia, unspecified; Z88.8 Allergy status to other drugs, medicaments and biological substances; Z79.899 Other long term (current) drug therapy
CPT/HCPCS: 10078; 10081; 10102; 62110; 62900; 70005

== ENCOUNTER → 2021-05-02 | Outpatient (CLI) | payer OTHER ==
[~2021-05-02] VITALS: Ht 177.8 cm; Wt 55.3 kg
[~2021-05-02] MED LIST: ACTOS 30 MG TAB30 M1 PO; ASA81BEC PO; ATORVASTATIN CA10 MG PO; CHLORTHALIDONE25 MG PO; DILTIAZEM 24HR120 M1 PO; HYDRALAZINE 2525 M1 PO; LOSARTAN POTAS100 MG PO; METFORMIN HCL1000 MG PO; ONE DAILY COMP1 EAC2 PO; PIOGLITAZONE15 MG; PLAVIX 75 MG TA75 MG PO; PROTONIX40 M2 PO; REMERON15 M2 PO; SERTRALINE HCL50 MG PO; TYLENOL325 MG PO
[2021-05-02 09:10] VITALS: BP 156/85
[2021-05-02 09:55] LABS: CREATININE 1.8 mg/dL (0.7-1.3); POTASSIUM 4.3 mmol/L (3.5-5.1)
[2021-05-02 13:54] VITALS: BP 161/91
[2021-05-02 14:01] VITALS: BP 159/83
[2021-05-02 14:35] VITALS: BP 165/85
--- NOTE | 2021-05-02 15:00 | NUR ---
MED GIVEN CRUSHED WITH APPLE SAUCE AND SPOON FED TO PT. PUDDING GIVEN SHORTLY AFTER PER PT REMALLORIE.
[2021-05-02 15:01] VITALS: BP 144/80
--- NOTE | 2021-05-02 15:14 | NUR ---
REPORT TO ANTONIO AGUIRRE AT [facility].
[2021-05-02 15:28] VITALS: BP 148/76
== END | disposition home or self-care (01) ==
LOC: CATH 08:00
PROVIDERS: ATTEND Nuclear Medicine Nuclear Cardiology
DX: I70.238 Atherosclerosis of native arteries of right leg with ulceration of other part of lower leg (principal); L97.919 Non-pressure chronic ulcer of unspecified part of right lower leg with unspecified severity; I70.1 Atherosclerosis of renal artery; I12.9 Hypertensive chronic kidney disease with stage 1 through stage 4 chronic kidney disease, or unspecified chronic kidney disease; E11.22 Type 2 diabetes mellitus with diabetic chronic kidney disease; N18.30 Chronic kidney disease, stage 3 unspecified; I25.10 Atherosclerotic heart disease of native coronary artery without angina pectoris; E78.00 Pure hypercholesterolemia, unspecified; F03.90 Unspecified dementia, unspecified severity, without behavioral disturbance, psychotic disturbance, mood disturbance, and anxiety; K21.9 Gastro-esophageal reflux disease without esophagitis; Z98.890 Other specified postprocedural states; Z79.899 Other long term (current) drug therapy; Z86.73 Personal history of transient ischemic attack (TIA), and cerebral infarction without residual deficits; Z88.8 Allergy status to other drugs, medicaments and biological substances
CPT/HCPCS: 62110; 62900; 70005